=== PATIENT | female | born 1945 | race Caucasian/White ===

== ENCOUNTER 2017-06-08 09:59 | Emergency (ER) | payer MEDICARE, OTHER ==
[~2017-06-08] VITALS: Ht 160 cm; Wt 70.0 kg
[~2017-06-08 09:59] MED LIST: AMOX500T PO; AZIT250T74 PO; BYST10TA2 PO; CALCTAB98 PO; LASI20TA PO; VITA250L PO
--- NOTE | 2017-06-08 10:07 | PD ---
HPI Chief Complaint: near-syncope Time Seen by Provider: 10:06 Travel History International Travel<30 days: No Contact w/Intl Traveler<30days: No History of Present Illness HPI Patient comes to the emergency department after a near syncopal episode. Patient states she went to check on her car and when she started walking back she became dizzy tripped or sandbags falling hitting the back of her head. Patient denies any actual loss of consciousness. Denies any chest pain pre-or post-syncopal episode. Patient reports pain over hematoma over left occipital lobe. Denies any radiation of pain. Denies anything making it better. Pain is worse to palpation. Denies any headache, change in vision, numbness tingling anywhere, loss or change in bowel or bladder, shortness of breath, abdominal pain, back pain, neck pain, or fevers. Patient does report taking an aspirin daily. PFSH Past Medical History Hx Anticoagulant Therapy: Yes (baby asa) Asthma: No Blood Disorders: No Heart Rhythm Problems: No Cancer: No Cardiovascular Problems: No High Cholesterol: No Chemotherapy: No Chest Pain: Yes Congestive Heart Failure: No COPD: No Cerebrovascular Accident: Yes Diabetes: No Endocrine: No Gastrointestinal Disorders: Yes Genitourinary: No Hypertension: Yes Immune Disorder: No Musculoskeletal: No Neurologic: No Psychiatric: No Reproductive: No Respiratory: No Radiation Therapy: No Sleep Apnea: No Thyroid Disease: No Past Surgical History Abdominal Surgery: Yes Body Medical Devices: METAL CLIPS IN STOMACH Social History Alcohol Use: No Tobacco Use: No Substance Use: No Allergies-Medications (Allergen,Severity, Reaction): Coded Allergies: ciprofloxacin (Unverified Allergy, Severe, nausea, vomiting, 05/12/17) prednisone (Unverified Allergy, Severe, 05/12/17) aspirin (Unverified Allergy, Unknown, vomiting , 05/12/17) oxycodone (Unverified Allergy, Unknown, vomiting , 05/12/17) Uncoded Allergies: codiene (Allergy, Severe, gi, 11/22/15) Reported Meds & Prescriptions Reported Meds & Active Scripts Active Reported Losartan-Hydrochlorothiazide 100-12.5 Mg Tab 1 Tab PO DAILY Celebrex (Celecoxib) 200 Mg Cap 200 Mg PO BID Bystolic (Nebivolol) 10 Mg Tab 10 Mg PO DAILY Simvastatin 40 Mg Tab 40 Mg PO HS Prilosec (Omeprazole Magnesium) 20 Mg Tab 20 Mg PO DAILY Review of Systems Except as stated in HPI: all other systems reviewed are Neg Physical Exam Narrative GENERAL: Well-developed, overly nourished, in no acute distress, and non-ill appearing. SKIN: Focused skin assessment warm and dry. Hematoma noted left occipital lobe that is tender to palpation. HEAD: Atraumatic. Normocephalic. EYES: Pupils equal and round. EOMI. No scleral icterus. No injection or drainage. ENT: No nasal bleeding or discharge. Mucous membranes pink and moist. NECK: Trachea midline. C-collar in place. Patient reports tenderness to palpation lower paravertebral cervical spinal muscles. CARDIOVASCULAR: Regular rate and rhythm. No murmur appreciated. RESPIRATORY: No accessory muscle use. No respiratory distress. Clear to auscultation. Breath sounds equal bilaterally. GASTROINTESTINAL: Abdomen soft, non-tender, nondistended, and no guarding. Hepatic and splenic margins not palpable. No pulsatile mass. MUSCULOSKELETAL: No obvious deformities. No clubbing. No cyanosis. No edema. Full range of motion. NEUROLOGICAL: Awake and alert. No obvious cranial nerve deficits. Motor grossly within normal limits. Normal speech. PSYCHIATRIC: Appropriate mood and affect; insight and judgment normal. Data Data Last Documented VS Vital Signs Date Time Temp Pulse Resp B/P (MAP) Pulse Ox O2 Delivery O2 Flow Rate FiO2 06/08/17 10:34 73 18 192/79 (116) 76 18 182/77 (112) 74 18 172/77 (108) 06/08/17 10:13 98 Room Air 06/08/17 10:11 98.2 Orders Orders Electrocardiogram (06/08/17 10:07) Basic Metabolic Panel (Bmp) (06/08/17 10:07) Complete Blood Count With Diff (06/08/17 10:07) Magnesium (Mg) (06/08/17 10:07) Ckmb (Isoenzyme) Profile (06/08/17 10:07) Troponin I (06/08/17 10:07) Act Partial Throm Time (Ptt) (06/08/17 10:07) Prothrombin Time / Inr (Pt) (06/08/17 10:07) Urinalysis - C+S If Indicated (06/08/17 10:07) Chest, Single Ap (06/08/17 10:07) Ct Brain W/O Iv Contrast(Rout) (06/08/17 10:07) Ecg Monitoring (06/08/17 10:07) Iv Access Insert/Monitor (06/08/17 10:07) Oximetry (06/08/17 10:07) Sodium Chloride 0.9% Flush (Ns Flush) (06/08/17 10:15) Orthostatic Vital Signs (06/08/17 10:07) Ice/Cold Pack (06/08/17 10:10) Alcohol (Ethanol) (06/08/17 10:20) Ct Cerv Spine W/O Contrast (06/08/17 ) Labs Laboratory Tests Test 06/08/17 10:17 MDM Medical Decision Making Medical Screen Exam Complete: Yes Emergency Medical Condition: Yes Interpretation(s) EKG reviewed by Dr. Walter shows normal sinus rhythm ventricular rate of 76. No STEMI. Differential Diagnosis Syncope, near-syncope, electrolyte abnormality, orthostatic hypotension, CVA, TIA, acute coronary syndrome, dehydration, other Narrative Course Patient was seen and examined. Initial laboratory and radiologic studies were ordered. Patient was signed out to Dr. Walter. Please see his documentation for final diagnosis and disposition. Daniel Marinelli Jun 08, 2017 10:07
[2017-06-08 10:11] VITALS: BP 209/91; PULSE 69; RESP 18; TEMP 98.2; O2SAT 98; O2SAT 99
[2017-06-08] MEDS ORDERED: SODIUM CHLORIDE 0.9% FLUSH 10 ML FLUSH IVF PRN (10:15)
[2017-06-08 10:34] VITALS: BP_SYST 172; BP_SYST 182; BP_SYST 192; BP_DIAS 77; BP_DIAS 79; RESP 18
[2017-06-08] MEDS ORDERED: LOSA100T3 PO (10:40)
[2017-06-08] MEDS ORDERED: BYST10TA2 PO (10:40)
[2017-06-08] MEDS ORDERED: SIMV40TA PO (10:40)
[2017-06-08] MEDS ORDERED: PRIL20TA2 PO (10:40)
[2017-06-08] MEDS ORDERED: CELE200C PO (10:40)
--- NOTE | 2017-06-08 10:43 | RADRPT ---
EXAM DATE/TIME: 06/08/2017 10:29 [facility] COMPARISON: CHEST SINGLE AP, November 22, 2015, 12:43. INDICATIONS : Fall, syncope. MEDICAL HISTORY : None. SURGICAL HISTORY : None. ENCOUNTER: Initial ACUITY: 1 day PAIN SCORE: 0/10 LOCATION: Bilateral chest FINDINGS: A single view of the chest demonstrates the lungs to be symmetrically aerated without evidence of mas s, infiltrate or effusion. Minimal basal atelectasis. The cardiomediastinal contours are unremarkabl e. Osseous structures are intact except mild scoliosis. CONCLUSION: 1. Minimal basal atelectasis. Lungs otherwise clear. No effusion or pneumothorax. Hector Mckenna MD on June 08, 2017 at 10:36 Board Certified Radiologist. This report was verified electronically.
[2017-06-08 10:46] LABS: AUTOMATED NEUTROPHIL # 8.1 TH/MM3 (1.8-7.7); BASOPHIL # 0.2 TH/MM3 (0-0.2); BASOPHIL % 1.3 % (0.0-2.0); EOSINOPHIL # 0.3 TH/MM3 (0-0.4); EOSINOPHIL % 2.4 % (0.0-4.0); HEMATOCRIT 40.5 % (35.0-46.0); HEMO FLAGS DIFF FINAL; LYMPH % 27.2 % (9.0-44.0); LYMPHOCYTE # 3.6 TH/MM3 (1.0-4.8); MEAN CELL VOLUME 92.6 FL (80.0-100.0); MEAN CORPUSCULAR HEMOGLOBIN 30.7 PG (27.0-34.0); MEAN CORPUSCULAR HGB CONC 33.2 % (32.0-36.0); MONO % 7.5 % (0.0-8.0); NEUT % 61.6 % (16.0-70.0); PLATELET COUNT 285 TH/MM3 (150-450); RED BLOOD COUNT 4.37 MIL/MM3 (4.00-5.30); RED CELL DISTRIBUTION WIDTH 13.9 % (11.6-17.2); WHITE BLOOD COUNT 13.1 TH/MM3 (4.0-11.0)
[2017-06-08 10:47] LABS: APTT (PATIENT) 28.4 SEC (24.3-30.1); INTERNATIONAL NORMALIZED RATIO 0.9 RATIO
--- NOTE | 2017-06-08 10:59 | RADRPT ---
EXAM DATE/TIME: 06/08/2017 10:44 [facility] COMPARISON: No previous studies available for comparison. INDICATIONS : Dizziness,slpp and fell at home,hit back of head. RADIATION DOSE: 31.83 CTDIvol (mGy) MEDICAL HISTORY : Hypertension. Cerebrovascular disease. SURGICAL HISTORY : Abdomen surgery ENCOUNTER: Initial ACUITY: 1 day PAIN SCALE: 7/10 LOCATION: cranial TECHNIQUE: Multiple contiguous axial images were obtained of the head. Using automated exposure control and adj ustment of the mA and/or kV according to patient size, radiation dose was kept as low as reasonably a chievable to obtain optimal diagnostic quality images. DICOM format image data is available electro nically for review and comparison. FINDINGS: CEREBRUM: The ventricles are normal for age. No evidence of midline shift, mass lesion, hemorrhage or acute in farction. No extra-axial fluid collections are seen. POSTERIOR FOSSA: The cerebellum and brainstem are intact. The 4th ventricle is midline. The cerebellopontine angle i s unremarkable. EXTRACRANIAL: A moderate-sized cephalhematoma is identified in the left posterior parietal region. The visualized p ortion of the orbits is intact. SKULL: The calvaria is intact. No evidence of skull fracture. CONCLUSION: 1. Moderate size left parietal cephalhematoma. 2. No evidence of acute intracranial hemorrhage or contusion. 3. No evidence of acute infarct, mass effect or edema. Ananth Ring MD on June 08, 2017 at 10:56 Board Certified Radiologist. This report was verified electronically.
[2017-06-08] MEDS ORDERED: MORPHINE SULFATE 4 MG/ML INJ IV PUSH ONE (11:00)
[2017-06-08] MEDS ORDERED: ONDANSETRON HCL 4 MG/2 ML VIAL IV PUSH ONE (11:00)
[2017-06-08 11:01] LABS: ANION GAP 6 MEQ/L (5-15); BICARBONATE 26.7 MEQ/L (21.0-32.0); BLOOD UREA NITROGEN 13 MG/DL (7-18); CHLORIDE 106 MEQ/L (98-107); GLOMERULAR FILTRATION RATE 61 ML/MIN (>89); MAGNESIUM 2.4 MG/DL (1.5-2.5); POTASSIUM 4.1 MEQ/L (3.5-5.1); SODIUM (NA) 139 MEQ/L (136-145)
[2017-06-08 11:05] LABS: CREATINE KINASE 41 U/L (26-192)
[2017-06-08 11:12] LABS: BACTERIA, URINE RARE /hpf; BLOOD, URINE NEG (NEG); COMMENT (UR) CULT NOT INDICATED; CULTURE IF INDICATED CULT NOT INDICATED; GLUCOSE,URINE NEG (NEG); KETONE, URINE NEG (NEG); MUCUS URINE FEW /lpf (OCC); NITRITE,URINE NEG (NEG); SQUAMOUS EPITHELIAL CELL URINE 1 /hpf (0-5); URINE COLOR LIGHT-YELLOW (YELLW/STRAW)
[2017-06-08 11:16] VITALS: BP 172/77; PULSE 79; RESP 18; O2SAT 98
--- NOTE | 2017-06-08 11:17 | RADRPT ---
EXAM DATE/TIME: 06/08/2017 10:44 [facility] COMPARISON: No previous studies available for comparison. INDICATIONS : Dizzy,slip and fall RADIATION DOSE: 23.63 CTDIvol (mGy) MEDICAL HISTORY : Cerebrovascular disease. Hypertension. SURGICAL HISTORY : Abdomen surgery ENCOUNTER: Initial ACUITY: 1 day PAIN SCALE: 7/10 LOCATION: neck TECHNIQUE: Volumetric scanning of the cervical spine was performed. Multiplanar reconstructions in the sagittal, coronal and oblique axial planes were performed. Using automated exposure control and adjustment o f the mA and/or kV according to patient size, radiation dose was kept as low as reasonably achievable to obtain optimal diagnostic quality images. DICOM format image data is available electronically f or review and comparison. FINDINGS: Vertebral body heights are maintained. Osseous structures are intact without evidence for acute bony fracture. Dens is intact. Mild, 2 mm, anterolisthesis of C7 on T1. There is a normal C1-2 relationshi p. Facets are normally aligned. There is no significant prevertebral soft tissue hematoma. Degenerati ve spondylosis of the mid to lower cervical spine with disc space narrowing osteophyte formation and multilevel facet arthropathy. No significant cervical adenopathy or gross mass. The thyroid appears u nremarkable. Visualized lung apices are clear without pneumothorax. CONCLUSION: 1. No acute fracture or dislocation. 2. Multilevel degenerative spondylosis of the mid to lower cervical spine. Reilly Harris MD on June 08, 2017 at 11:08 Board Certified Radiologist. This report was verified electronically.
--- NOTE | 2017-06-08 11:49 | PD ---
Physical Exam Narrative Patient was seen by my assistant purchasing manager and signed out to me. Data Data Last Documented VS Vital Signs Date Time Temp Pulse Resp B/P (MAP) Pulse Ox O2 Delivery O2 Flow Rate FiO2 06/08/17 11:16 79 18 172/77 (108) 98 Room Air 06/08/17 10:11 98.2 Orders Orders Electrocardiogram (06/08/17 10:07) Basic Metabolic Panel (Bmp) (06/08/17 10:07) Complete Blood Count With Diff (06/08/17 10:07) Magnesium (Mg) (06/08/17 10:07) Ckmb (Isoenzyme) Profile (06/08/17 10:07) Troponin I (06/08/17 10:07) Act Partial Throm Time (Ptt) (06/08/17 10:07) Prothrombin Time / Inr (Pt) (06/08/17 10:07) Urinalysis - C+S If Indicated (06/08/17 10:07) Chest, Single Ap (06/08/17 10:07) Ct Brain W/O Iv Contrast(Rout) (06/08/17 10:07) Ecg Monitoring (06/08/17 10:07) Iv Access Insert/Monitor (06/08/17 10:07) Oximetry (06/08/17 10:07) Sodium Chloride 0.9% Flush (Ns Flush) (06/08/17 10:15) Orthostatic Vital Signs (06/08/17 10:07) Ice/Cold Pack (06/08/17 10:10) Alcohol (Ethanol) (06/08/17 10:20) Ct Cerv Spine W/O Contrast (06/08/17 ) Morphine Inj (Morphine Inj) (06/08/17 11:00) Ondansetron Inj (Zofran Inj) (06/08/17 11:00) Labs Laboratory Tests Test 06/08/17 10:17 06/08/17 11:01 White Blood Count 13.1 TH/MM3 Red Blood Count 4.37 MIL/MM3 Hemoglobin 13.4 GM/DL Hematocrit 40.5 % Mean Corpuscular Volume 92.6 FL Mean Corpuscular Hemoglobin 30.7 PG Mean Corpuscular Hemoglobin Concent 33.2 % Red Cell Distribution Width 13.9 % Platelet Count 285 TH/MM3 Mean Platelet Volume 10.2 FL Neutrophils (%) (Auto) 61.6 % Lymphocytes (%) (Auto) 27.2 % Monocytes (%) (Auto) 7.5 % Eosinophils (%) (Auto) 2.4 % Basophils (%) (Auto) 1.3 % Neutrophils # (Auto) 8.1 TH/MM3 Lymphocytes # (Auto) 3.6 TH/MM3 Monocytes # (Auto) 1.0 TH/MM3 Eosinophils # (Auto) 0.3 TH/MM3 Basophils # (Auto) 0.2 TH/MM3 CBC Comment DIFF FINAL Differential Comment Prothrombin Time 10.0 SEC Prothromb Time International Ratio 0.9 RATIO Activated Partial Thromboplast Time 28.4 SEC Blood Urea Nitrogen 13 MG/DL Creatinine 0.91 MG/DL Random Glucose 106 MG/DL Calcium Level 9.4 MG/DL Magnesium Level 2.4 MG/DL Sodium Level 139 MEQ/L Potassium Level 4.1 MEQ/L Chloride Level 106 MEQ/L Carbon Dioxide Level 26.7 MEQ/L Anion Gap 6 MEQ/L Estimat Glomerular Filtration Rate 61 ML/MIN Total Creatine Kinase 41 U/L Troponin I LESS THAN 0.02 NG/ML Urine Color LIGHT-YELLOW Urine Turbidity CLEAR Urine pH 7.0 Urine Specific [place] 1.008 Urine Protein NEG mg/dL Urine Glucose (UA) NEG mg/dL Urine Ketones NEG mg/dL Urine Occult Blood NEG Urine Nitrite NEG Urine Bilirubin NEG Urine Urobilinogen LESS THAN 2.0 MG/DL Urine Leukocyte Esterase SMALL Urine RBC LESS THAN 1 /hpf Urine WBC 5 /hpf Urine Squamous Epithelial Cells 1 /hpf Urine Bacteria RARE /hpf Urine Mucus FEW /lpf Microscopic Urinalysis Comment CULT NOT INDICATED MDM Supervised Visit with NELSON: Yes Interpretation(s) Last Impressions Head CT 06/08/17 1007 Draft Impressions: Service Date/Time: Thursday, June 08, 2017 10:44 - CONCLUSION: 1. Moderate size left parietal cephalhematoma. 2. No evidence of acute intracranial hemorrhage or contusion. 3. No evidence of acute infarct, mass effect or edema. Ananth Ring MD Chest X-Ray 06/08/17 1007 Signed Impressions: Service Date/Time: Thursday, June 08, 2017 10:29 - CONCLUSION: 1. Minimal basal atelectasis. Lungs otherwise clear. No effusion or pneumothorax. Hector Mckenna MD 11:[address] cervical spine no acute pathology. Diagnosis Primary Impression: Closed head injury Qualified Codes: S09.90XA - Unspecified injury of head, initial encounter Additional Impression: Cervical strain Qualified Codes: S16.1XXA - Strain of muscle, fascia and tendon at neck level , initial encounter Patient Instructions: General Instructions Additional Instruction: Head trauma instructions given. Tylenol for headache. Follow-up with personal physician. Return if worse. Med/Other Pt SpecificInfo: No Change to Meds Disposition: 01 DISCHARGE HOME Condition: Stable Quang Walter MD Jun 08, 2017 11:49
--- NOTE | 2017-06-09 14:12 | EKG ---
Date Performed: 06/08/2017 Time Performed: 10:13:04 PTAGE: 72 years EKG: Sinus rhythm NORMAL ECG NO PREVIOUS TRACING DOCTOR: Criselda Villanueva Interpretating Date/Time 06/09/2017 14:07:19
== END 2017-06-08 12:42 | disposition home or self-care (01) ==
LOC: NEPE 09:59
DX: S09.90XA Unspecified injury of head, initial encounter (principal); S16.1XXA Strain of muscle, fascia and tendon at neck level, initial encounter; S00.03XA Contusion of scalp, initial encounter; R42 Dizziness and giddiness; R55 Syncope and collapse; I10 Essential (primary) hypertension; W01.10XA Fall on same level from slipping, tripping and stumbling with subsequent striking against unspecified object, initial encounter; Z86.73 Personal history of transient ischemic attack (TIA), and cerebral infarction without residual deficits; Z79.899 Other long term (current) drug therapy
CPT/HCPCS: 70450; 71010; 72125; 80048; 80307; 81001; 82550; 83735; 84484; 85025; 85610; 85730; 93005; 96374; 96375; 99285; J2270; J2405